=== PATIENT | female | born 1995 | race Two or more races ===

== ENCOUNTER 2016-04-22 20:18 | Emergency (ER) | payer BC ==
--- NOTE | ~2016-04-22 | ER ---
PATIENT'S NAME: ANSON FLORES [facility] AGE: 21 Y [address] ROOM: [place] [address] LOCATION: [facility] ADMIT DATE: 04/22/2016 ER/Outpatient Report DISCHARGE DATE: 04/22/2016 FAMILY PHYSICIAN: Physician, Unknown ATTENDING PHYSICIAN: Isaías Corrales TIME OF ARRIVAL: 2020 hours. TIME OF EXAM: 2020 hours. CHIEF COMPLAINT: Vomiting and diarrhea. HISTORY OF PRESENT ILLNESS: The patient states she began getting ill this morning about 9 o'clock. She was eating breakfast and then vomited up her breakfast and has not been able to keep anything down the rest of today. She states she has vomited at least 4 times, has had multiple diarrhea stools. Denies seeing any blood in her stools. She does have a seizure disorder. Mother is concerned that she may have had several seizures today and that is what brings her to the ER. ALLERGIES: SHE HAS NO KNOWN ALLERGIES. CURRENT MEDICATIONS: Current medications are on her chart and reviewed by me. PAST MEDICAL HISTORY: Epilepsy, hypothyroidism. SURGERIES: Benign. LIFE ASSURANCE REPRESENTATIVE HISTORY: Last menstrual, she has an implant in her arm, and does not have periods on a regular basis. SOCIAL HISTORY: She lives at home with siblings and mother and other family members are also ill with the same nausea and vomiting. REVIEW OF SYSTEMS: All negative other than those mentioned in the HPI. PATIENT'S NAME: ANSON FLORES [facility] AGE: 21 Y [address] ROOM: [place] [address] LOCATION: [facility] ADMIT DATE: 04/22/2016 ER/Outpatient Report DISCHARGE DATE: 04/22/2016 FAMILY PHYSICIAN: Physician, Unknown ATTENDING PHYSICIAN: Isaías Corrales PHYSICAL EXAMINATION: VITAL SIGNS: She weighed 49.7 kg. Blood pressure is 101/62, pulse of 109, respirations 20, temp of 100, tympanic, and O2 sat is 96% on room air. GENERAL: She is awake, alert, and oriented x4. SKIN: Pale, pink, warm, and dry. RESPIRATIONS: Even and nonlabored. Lung sounds are clear throughout. HEART: Regular rate and rhythm. ABDOMEN: Soft and nondistended. Bowel sounds are present. She has generalized tenderness of her abdomen. EMERGENCY DEPARTMENT COURSE: Saline lock was initiated with normal saline hung at a wide-open rate. She was given Zofran 4 mg IV. Lab work was drawn. CBC shows a white count of 13.9, hemoglobin 16.2 with hematocrit of 46.8. Chem panel is within normal limits. Free T4 is 1.3 with a TSH of 1.65. The patient was able to urinate. Clean-catch UA shows leukocytes, 0-2 white cells, and rare bacteria. The patient states she is feeling much better after the fluids and Zofran. Abdominal exam is unchanged. IMPRESSION: Gastroenteritis. PLAN: Home, rest, fluids, a prescription was written for Zofran, discussed with her contacting her provider on Monday, and to checkup and to find out the Keppra results, I did check Keppra level, but that is not back. If symptoms worsen, she should return to the ER, and she verbalized understanding. NANDO SOLIZ APRN FOR MD JEY NUR/kimberly /[id number] d: 04/23/16124 t: 04/25/16 181, OUTPATIENT REPORT
[2016-04-22 20:59] LABS: BASOPHIL % 0.1 %; EOSINOPHIL # 0.1 K/uL (0.0-0.5); EOSINOPHIL % 0.9 %; HEMATOCRIT 46.8 % (33.0-46.0); HEMOGLOBIN 16.2 g/dL (11.0-15.0); IMMATURE GRANULOCYTE % 0.3 %; LYMPHOCYTE # 0.5 K/uL (0.8-4.0); LYMPHOCYTE % 3.7 %; MCH 30.3 pg (27.0-34.0); MCHC 34.6 gm/dL (32.0-36.5); MCV 87.5 fl (83.0-98.0); MONOCYTE # 0.5 K/uL (0.0-1.0); MONOCYTE % 3.7 %; NEUTROPHIL # (ANC) 12.7 K/uL (1.8-7.8); NEUTROPHIL % 91.3 %; NRBC % 0 /100WBC (0-0.00); PLATELET COUNT 256 K/uL (150-450); RBC 5.35 M/uL (3.50-5.00); RDW-CV 12.1 % (11.9-14.6); WBC 13.9 K/uL (4.0-11.0)
[2016-04-22 21:19] LABS: ALBUMIN 4.7 gm/dL (3.5-5.0); ALK PHOS 75 IU/L (33-138); ALT 19 IU/L (12-78); ANION GAP 15.7 (10.0-19.0); AST 11 IU/L (10-40); BLOOD UREA NITROGEN 11 mg/dL (6-24); CALCIUM 8.9 mg/dL (8.5-10.5); CHLORIDE 106 mMol/L (96-110); CO2 23 mMol/L (22-32); ESTIMATED GFR (MDRD EQUATION) > 60; POTASSIUM 3.7 mMol/L (3.7-5.1); SODIUM 141 mMol/L (135-145); TOTAL PROTEIN 8.5 g/dL (6.0-8.4)
[2016-04-22 21:20] LABS: TOTAL BILIRUBIN 1.4 mg/dL (0.0-1.5)
[2016-04-22 21:38] LABS: BLOOD URINE NEGATIVE /UL (NEGATIVE); COLOR URINE YELLOW (YELLOW); GLUCOSE URINE NEGATIVE (NEGATIVE); KETONE URINE 50 mg/dL (NEGATIVE); LEUKOCYTES URINE 25 /UL (NEGATIVE); NITRITE URINE NEGATIVE (NEGATIVE); PROTEIN URINE 30 mg/dL (NEGATIVE); SPEC GRAVITY URINE 1.025 (1.003-1.035); TURBIDITY URINE CLEAR (CLEAR); UROBILINOGEN URINE NORMAL (NORMAL)
[2016-04-22 21:43] LABS: BACTERIA URINE RARE (NEGATIVE); EPITHELIAL URINE 0-2 #/HPF (NEGATIVE); MUCUS URINE 2+ (NEGATIVE); RBC URINE NEGATIVE #/HPF (NEGATIVE); WBC URINE 0-2 #/HPF (NEGATIVE)
== END 2016-04-22 22:42 | disposition disaster alternative care site (69) ==
LOC: GMED 20:18
PROVIDERS: Emergency Medicine
DX: K52.9 Noninfective gastroenteritis and colitis, unspecified (principal); G40.909 Epilepsy, unspecified, not intractable, without status epilepticus; E03.9 Hypothyroidism, unspecified
CPT/HCPCS: J2405; J7030